=== PATIENT | male | born 1960 | race Caucasian/White ===

== ENCOUNTER 2023-06-17 23:12 | Inpatient (IN) | payer OTHER, SELFPAY ==
[2023-06-17 18:49] VITALS: BP 146/105; BMI 27.7
[2023-06-17 19:10] LABS: % Basophils 0.4 % (0-2); % Eosinophils 2.1 % (0-6); % Immature Granulocytes 0.3 % (0-0.5); % Lymphocytes 15.5 % (20.5-51.1); % Neutrophils 75.7 % (42.2-75.2); Absolute Eosinophils 0.2 10^3/uL (0-0.7); Absolute Lymphocytes 1.2 10^3/uL (1.2-3.4); Absolute Monocytes 0.5 10^3/uL (0.1-0.6); Absolute Neutrophils 5.7 10^3/uL (1.4-6.5); Hematocrit 47.1 % (39.0-52.0); Hemoglobin 16.3 g/dL (13.0-18.0); Mean Corp Hgb Conc. 34.6 g/dL (33.0-37.0); Mean Corpuscular Hgb 32.1 pg (27.0-31.0); Mean Corpuscular Volume 92.9 fL (80.0-94.0); Mean Platelet Volume 10.7 fL (7.4-10.4); Nucleated Red Blood Cells % 0 % (-); Platelet Count 191 10^3/uL (130-400); Red Blood Cell Count 5.07 10^6/uL (4.70-6.10); White Blood Cell Count 7.5 10^3/uL (4.8-10.8)
[2023-06-17 19:20] LABS: Urine Albumin 1+ (Neg - Trace); Urine Bilirubin 2+ (Negative); Urine Character Clear (Clear); Urine Color Yellow; Urine Glucose Negative (Negative); Urine Ketone 1+ (Negative); Urine Leukocyte Trace (Negative); Urine Nitrite Positive (Negative); Urine Occult Blood 2+ (Negative); Urine Specific Gravity 1.025 (<1.030); Urine Urobilinogen 3+ (Neg - 1+)
[2023-06-17 19:25] LABS: Albumin 4.1 g/dl (3.5-5.0); Alkaline Phosphatase 272 U/L (38-126); Blood Urea Nitrogen 19 mg/dl (9-20); Calcium 9.6 mg/dl (8.4-10.2); Carbon Dioxide 27 mmol/L (22-30); Chloride 108 mmol/L (98-107); Estimated Creatinine Clearance 83 ml/min; Glucose 107 mg/dl (70-99); Potassium 4.2 mmol/L (3.5-5.1); Sodium 137 mmol/L (135-145); Total Protein 6.9 g/dl (6.3-8.2); eGFR > 60.00
[2023-06-17 19:28] LABS: Urine White Cell 0-2 /HPF (0-5)
[2023-06-17 20:01] LABS: ALT (SGPT) 1621 U/L (0-50); AST (SGOT) 1134 U/L (17-59); Lipase > 4000 U/L (23-300)
--- NOTE | 2023-06-17 20:07 | ED.GENMED ---
History of Present Illness
General
Chief Complaint: Abdominal Pain
Source: patient and spouse
Exam Limitations: none
Time Seen by Provider: 06/17/23 19:47
Nursing documentation reviewed up to this point in time: agreed with
Travel History
Have you had any contact with someone who has COVID-19?: No
Do you have any symptoms of coronavirus? Fever > 100 degrees, chills, cough, shortness of breath, sore throat, loss of taste or smell, muscle aches, or headache?: No
History of Present Illness
History of Present Illness:
63-year-old male presents to the ER for evaluation of abdominal pain. He tells me he has had intermittent pain since yesterday he started this in the morning it went away but came back sharp last night. He points to his mid abdominal region as the
site of pain. Denies any associated vomiting but felt nauseous once or twice with the. No constipation or diarrhea he did move his bowels today. He denies any fever or chills. He is a social drinker.
Denies any recent fever chills illness. He had a normal colonoscopy previously
Past History
Past History
ED Past Medical History: Other (Kidney stones)
ED Past Surgical History: Orthopedic, Tonsilectomy and Urological
Social History
Tobacco: Non-smoker
Personal:
Living: with family
Review of Systems
Review of Systems
Allergies reviewed?: Yes
All Other Systems: ROS reviewed and negative except as documented in HPI and ROS
Constitutional: Reports no symptoms; Denies fever, fatigue or chills
EENT: Reports no symptoms
Respiratory: Reports no symptoms
Cardiac: Reports no symptoms
ABD/GI: Reports no symptoms
: Reports no symptoms
Musculoskeletal: Reports no symptoms
Skin: Reports no symptoms
Neurological: Reports no symptoms
Hematologic/Lymphatic: Reports no symptoms
Psychiatric: Reports no symptoms
Phy Exam
General Physical Exam
General Presentation: no apparent distress
General age: appears stated age
General Skin: warm and dry
General Mental: alert
General Hydration: appears well hydrated
Gastrointestinal Exam
Gastrointestinal Exam: non tender and soft
Neurological Exam
Neurological Exam: alert and oriented x3
Musculoskeletal Exam
Musculoskeletal Exam: full ROM
Skin Exam
Skin Exam: normal color and warm/dry
Psychiatric Exam
Psychiatric Exam: normal mood/affect
Course
Orders/Labs/Results
Orders:
Orders
06/17/23 19:01
Complete Blood Count/With Diff Urgent
Comprehensive Metabolic Panel Urgent
Lipase Urgent
Urinalysis Reflex To Culture Urgent
Date Specimen was Collected: 06/17/23
Time Specimen was Collected: 18:53
Urine Microscopic Reflex Cult Urgent
Urine Culture Urgent
DEBRA Source: U
Specimen Description:
Date Specimen was Collected: 06/17/23
Time Specimen was Collected: 18:53
06/17/23 20:10
US Abdomen Complete/Upper Urgent
Comment:
Reason For Exam: generalized abd pain elevated lfts and lipase
06/17/23 22:06
Morphine Sulfate 4 mg IV NOW STA
Abnormal Lab Results
06/17/23
19:01
MCH 32.1 H pg
(27.0-31.0)
MPV 10.7 H fL
(7.4-10.4)
Neutrophils % 75.7 H %
(42.2-75.2)
Lymphocytes % 15.5 L %
(20.5-51.1)
Chloride 108 H mmol/L
(98-107)
Glucose 107 H mg/dl
(70-99)
Total Bilirubin 3.0 H mg/dl
(0.2-1.3)
AST 1134 H* U/L
(17-59)
ALT 1621 H* U/L
(0-50)
Alkaline Phosphatase 272 H U/L
(38-126)
Lipase > 4000 H* U/L
(23-300)
Urine Ketones 1+ A
(Negative)
Ur Occult Blood Reflex 2+ A
(Negative)
Urine Nitrite (Reflex) Positive A
(Negative)
Urine Bilirubin 2+ A
(Negative)
Urine Urobilinogen 3+ A
(Neg - 1+)
Leukocyte Esterase Rfl Trace A
(Negative)
Urine RBC 3-6 A /HPF
(0-2)
Urine Albumin (Reflex) 1+ A
(Neg - Trace)
06/17/23 19:01
06/17/23 19:01
Vital Signs
Initial and Last Documented VS:
Initial Vital Signs
Temp Pulse Resp BP Pulse Ox
98.6 F 78 16 146/105 98
06/17/23 18:49 06/17/23 18:49 06/17/23 18:49 06/17/23 18:49 06/17/23 18:49
Last Documented Vital Signs
Temp Pulse Resp BP Pulse Ox
98.6 F 78 16 144/95 98
06/17/23 18:49 06/17/23 18:49 06/17/23 18:49 06/17/23 21:00 06/17/23 21:50
Remelt Furnace Expediter consulted with Physician
Remelt Furnace Expediter consulted with physician?: Yes
Name of Physician Consulted: Wilson
MDM/Problems Addressed
Differential Diagnosis Includes:
Not limited to reflux, biliary colic, less likely pancreatitis, diverticulitis
MDM/Problems Addressed:
Patient is a 63-year-old male presents to the ER for evaluation abdominal pain that has been intermittent but getting worse since last night. Patient is not necessarily tender on exam complain of pain. Patient was found to have elevated liver
function test including elevated bilirubin 3.0, elevated AST at 1134 elevated ALT at 1621 alk phos of 272 and an elevated lipase greater than 4000.
Patient denies any fever chills.
Ultrasound does show multiple stones in the gallbladder with gallbladder wall thickening no findings to suggest biliary tract dilatation pancreas is obscured unable to evaluate for pancreatitis however with lipase being elevated as discussed with
physician likely gallstone pancreatitis. Normal white count nontoxic afebrile. Will give fluids pain medication and admit
*Critical Care Note
Total Time (30-74mins, 75-104mins- exclusive of procedures): Not Applicable
ED Attending Note
-
Portions of this chart may have been created with voice recognition software.� Occasional wrong word or��sound alike� substitutions may have occurred due to the inherent limitations of voice recognition software.
Discharge Plan
Departure
Patient Disposition: Admit
Date of Disposition: 06/17/23
Time of Disposition: 22:22
Admit to: Med/Surg
Presentation/result/management discussed w/ accepting MD/DO: Hospitalist
Patient with high blood pressure during this ER visit?: Yes
Condition: Fair
Covid-19: Not Applicable
Discharge Problem:
Abdominal pain, Elevated liver enzymes
Prescriptions:
No Action
allopurinol 300 MG tablet
300 mg PO DAILY
Magnesium
1 dose PO DAILY
Red Yeast Rice
1 dose PO DAILY
oxycodone-acetaminophen 5 MG/325 MG tablet
1 tab PO Q6HPRN PRN (Reason: pain) Qty: 10 0RF
Referrals:
Isauro Mkcenna MD [Family Provider] -
Interventions
Interventions:
*Risk Screen - Suicide Last Done: 06/17/23 18:49
*Neglect/Abuse Screening Last Done: 06/17/23 18:49
ED- Fall Risk Assessment Last Done: 06/17/23 18:49
LQ-Aibckc-Cxfibwdbdc Assessment Last Done: 06/17/23 20:20
Discharge Date and Time
Print Language: AMHARIC
[2023-06-17 20:17] VITALS: BP 142/86
[2023-06-17 21:00] VITALS: BP 144/95
[2023-06-17 22:00] VITALS: BP 147/94
[2023-06-17] MEDS: MORPHINE SULFATE 4 MG IV (22:11)
[2023-06-17] MEDS: NSS 1000 IV (22:22)
[2023-06-17 23:00] VITALS: BP 164/126
--- NOTE | 2023-06-17 23:17 | HPS.HSE ---
Family Physician
-
Family Physician: Isauro Mckenna
Chief Complaint
-
Abd Pain
History of Present Illness
Patient is a 63y M with PMH significant for gout and kidney stones who presents to ED complaining of abdominal pain. Patient notes that he developed abdominal pain yesterday while driving. This resolved after a period of time - though it
briefly returned after he drank some coffee. He had dinner last PM and felt well when he went to bed. He woke in the middle of the night with abdominal discomfort - but went back to sleep. When he woke this AM, the pain was present and it has
persisted throughout the day. Pain increases at times, 'in waves'. he had a single bout of nausea with no emesis. Normal BM this morning. No fevers / chills.
Patient describes a similar episode about 2 weeks ago that seemed to improve with Advil.
Today he took Tylenol, Advil, TUMS, etc without improvement in his symptoms.
Patient notes in retrospect that he has frequently felt 'lousy' after eating - probably for the past several months. He has not had any pain per se, but has felt bloated and mildly nauseated.
Medical History
Past Medical History
Past Medical History: Reports Other
Additional Past Medical History:
Gout
Nephrolithiasis
Past Surgical History: Reports Other
Additional Past Surgical History:
T&A
Right Knee Arthroscopy
ESWL
Ureteroscopy / Stent
Social History
Tobacco: Non-smoker
Alcohol: Occasional
Drug: None
Personal:
Living: With Family
Family History
Family History: Other (Father: CAD Mother: Parkinson's, A-Fib)
Allergies / Home Medications
Allergies reflects when Allergies were last updated in [facility].
Home Medications with original date entered in [facility]
Allergy/Medication List:
Allergies
Allergy/AdvReac Type Severity Reaction Status Date / Time
NKA - No Known Allergies Allergy Unknown Uncoded 06/17/23 18:52
Home Medications
allopurinol 300 mg tablet 300 mg PO DAILY 06/25/19
Review of Systems
-
History Source: Patient
A 12 point ROS was completed and negative except as noted: Yes
Constitutional: Denies Fever or Chills
Respiratory: Denies Cough or Trouble Breathing
Cardiac: Denies Chest Pain or Palpitations
Abdomen/GI: Reports Abdominal Pain and Nausea; Denies Vomiting, Diarrhea or Constipated
: Denies Dysuria, Frequency or Flank Pain
Neurological: Denies Dizzy or Headache
Psych: Denies Depression or Anxiety
Physical Exam
Vital Signs
Vital Signs
Temp Pulse Resp BP Pulse Ox
98.6 F 79 17 147/94 97
06/17/23 18:49 06/17/23 22:30 06/17/23 22:30 06/17/23 22:00 06/17/23 22:30
Physical Exam
General: Other (63y M in no acute distress.)
HEENT: Moist mucous membranes and PERRLA
Respiratory: Clear; No Wheezes, Rales or Rhonchi
Cardiac: S1/S2 and Regular Rhythm; No Murmur
GI: Soft, Non Distended, Normal Bowel Sounds and Other (Mild tenderness R abdomen. No rebound / guarding.)
Musculoskeletal: No Clubbing, No Cyanosis and No Edema
Neuro: AO x 3
Laboratory Results
-
06/17/23 19:01
06/17/23 19:01
Laboratory Results
Total Bilirubin 3.0 mg/dl (0.2-1.3) H 06/17/23 19:01
AST 1134 U/L (17-59) H* 06/17/23 19:01
ALT 1621 U/L (0-50) H* 06/17/23 19:01
Alkaline Phosphatase 272 U/L (38-126) H 06/17/23 19:01
Lipase > 4000 U/L (23-300) H* 06/17/23 19:01
Impression/Plan
-
A/P: Patient is a 63y M with PMH significant for gout and kidney stones who presents to ED complaining of abdominal pain.
Cholelithiasis
+/- Choledocholithiasis
+/- Cholecystitis
- Admit for further evaluation and treatment.
- IV abx with Zosyn for now.
- Supportive care with IVFs, pain control, antiemetics, etc.
- GI and Surgery consulted for further evaluation.
- MRI / MRCP in the AM for further evaluation.
- +/- ERCP depending on findings.
- Patient would likely benefit from cholecystectomy at some point.
- Follow for any new / worsening symptoms.
- Follow for improvement in LFTs.
History of Gout
- Stable. No recent symptoms.
- Continue allopurinol.
DVT Prophylaxis: Lovenox
Code Status: Full
--- NOTE | 2023-06-18 00:14 | PTCARENOTE ---
Pt received from ED to 434-1. Pt oriented to room and call eddy.
[2023-06-18 00:17] VITALS: BMI 27.8
[2023-06-18 00:18] VITALS: BP 152/88
[2023-06-18] MEDS: NSS 1000 IV ×2 (00:25→08:06)
[2023-06-18] MEDS: ZOSYN 50 IV ×4 (01:05→20:21)
[2023-06-18 06:14] LABS: Hematocrit 41.6 % (39.0-52.0); Hemoglobin 14.3 g/dL (13.0-18.0); Mean Corp Hgb Conc. 34.4 g/dL (33.0-37.0); Mean Corpuscular Hgb 31.8 pg (27.0-31.0); Mean Corpuscular Volume 92.4 fL (80.0-94.0); Mean Platelet Volume 11.3 fL (7.4-10.4); Platelet Count 171 10^3/uL (130-400); Red Cell Dist. Width 12.9 % (11.5-14.5); White Blood Cell Count 6.7 10^3/uL (4.8-10.8)
[2023-06-18 06:20] LABS: AST (SGOT) 568 U/L (17-59); Albumin 3.3 g/dl (3.5-5.0); Alkaline Phosphatase 251 U/L (38-126); Blood Urea Nitrogen 16 mg/dl (9-20); Calcium 8.4 mg/dl (8.4-10.2); Carbon Dioxide 23 mmol/L (22-30); Chloride 109 mmol/L (98-107); Direct Bilirubin 0.4 mg/dl (0.0-0.4); Estimated Creatinine Clearance 107 ml/min; Glucose 94 mg/dl (70-99); Potassium 3.9 mmol/L (3.5-5.1); Sodium 136 mmol/L (135-145); Total Bilirubin 1.5 mg/dl (0.2-1.3); Total Protein 5.9 g/dl (6.3-8.2); eGFR > 60.00
[2023-06-18 06:29] LABS: ALT (SGPT) 965 U/L (0-50)
[2023-06-18 07:01] VITALS: BP 138/82
[2023-06-18 07:07] LABS: Hepatitis C Antibody Negative (Negative)
[2023-06-18] MEDS: NSS (PRESERVATIVE FREE) 10 ML IV (08:04)
[2023-06-18] MEDS: PROTONIX IV 40 MG IV (08:04)
[2023-06-18] MEDS: ZYLOPRIM 300 MG PO (08:05)
--- NOTE | 2023-06-18 08:14 | CON.GI ---
Consultation
-
Date/Time Consultation Requested: 06/18/2023, 00:15
Date/Time Consultation Performed: 06/18/2023, 4pm
Requesting Provider: Dr. Foreman
Performing Provider: Dr. Braun
Reason for Consultation: possible choledocho; elevated bili
Medical History
Chief Complaint / HPI
Chief Complaint: abd pain
History of Present Illness:
63-year-old male presenting with upper abdominal pain. Patient had abdominal pain 2 weeks ago and then had recurrent on Monday night much more severe. Pain is epigastric. Had a [employer] pounder for lunch and then chicken farm for dinner and woke up
that night with pain. Had some mild nausea. No fevers or chills.
Labs significant for total bilirubin 3 repeat 1.5 with direct of 0.4, AST initially 1134 down to 568, ALT 1621, repeat 965, alk phos initially 272, down to 251, lipase more than 4000. WBC 6.7. No fevers.
Abdominal ultrasound with cholelithiasis with borderline gallbladder wall thickening, pancreas obscured cannot evaluate for pancreatitis.
Records show colonoscopy was done [address] Best with 3 mm rectal polyp, stool in the ascending colon but prep was adequate, hemorrhoids, pathology with lymphoid aggregate recommend repeat 5 years.
Past Medical History
Past Medical History: Other (gout, nephrolithiasis)
Past Surgical History: Orthopedic and Other (T+A)
Social History
Tobacco: Non-Smoker
Alcohol: Occasional
Drug: None
Family History
Family History: Other (grandma with [facility] provide)
Allergies / Home Medications
Allergy/AdvReac Type Severity Reaction Status Date / Time
NKA - No Known Allergies Allergy Unknown Uncoded 06/17/23 18:52
�Medication �Instructions �Recorded
allopurinol 300 mg tablet 300 mg PO DAILY 06/25/19
Review of Systems
Vital Signs
Temp Pulse Resp BP Pulse Ox
98.8 F 77 16 138/82 97
06/18/23 07:01 06/18/23 07:01 06/18/23 07:01 06/18/23 07:01 06/18/23 07:01
Physical Exam
Exam
General: Well Developed
HEENT: Anicteric
Respiratory: Clear
GI: Non Tender and Non Distended
Musculoskeletal: No Clubbing
Skin: Warm
Neuro: AO x 3
Hematologic/Lymphatic: No Lymphadenopathy
Psych: Calm
Results
WBC 6.7 10^3/uL (4.8-10.8) 06/18/23 05:47
Hgb 14.3 g/dL (13.0-18.0) 06/18/23 05:47
Hct 41.6 % (39.0-52.0) 06/18/23 05:47
MCV 92.4 fL (80.0-94.0) 06/18/23 05:47
Plt Count 171 10^3/uL (130-400) 06/18/23 05:47
Absolute Neuts (auto) 5.7 10^3/uL (1.4-6.5) 06/17/23 19:01
Sodium 136 mmol/L (135-145) 06/18/23 05:47
Potassium 3.9 mmol/L (3.5-5.1) 06/18/23 05:47
Chloride 109 mmol/L (98-107) H 06/18/23 05:47
Carbon Dioxide 23 mmol/L (22-30) 06/18/23 05:47
BUN 16 mg/dl (9-20) 06/18/23 05:47
Creatinine 0.7 mg/dL (0.7-1.3) 06/18/23 05:47
Calcium 8.4 mg/dl (8.4-10.2) 06/18/23 05:47
Total Bilirubin 1.5 mg/dl (0.2-1.3) H D 06/18/23 05:47
AST 568 U/L (17-59) H* 06/18/23 05:47
ALT 965 U/L (0-50) H* 06/18/23 05:47
Alkaline Phosphatase 251 U/L (38-126) H 06/18/23 05:47
Lipase > 4000 U/L (23-300) H* 06/17/23 19:01
Hepatitis C Antibody Negative (Negative) 06/18/23 05:47
Diagnostic Image Results:
Prior GI Procedures:
EGD:
Colonoscopy:
Assessment / Plan
-
63-year-old male presenting with upper abdominal pain found to have lipase more than 4000, stones on ultrasound, elevated LFTs. Most likely I suspect this is gallstone pancreatitis. Of note, AST and ALT are out of portion to what would expected
for gallstone pancreatitis. Bilirubin is elevated but decreased on repeat and direct bilirubin is currently normal. Lower suspicion for choledocholithiasis.
At this time, MRI with MRCP has been ordered and we will follow this up. Recommend n.p.o., IV fluids, monitor I+O with pancreatitis. Surgery has also been consulted and I d/w surgery, plan for interval CCY pending MRI and improvement of
pancreatitis.
Discussed possible need for ERCP r/a/b reviewed with pt inc but not limited to bleeding, infection, perforation, pancreatitis.
-
-
Thank you for consultation and allowing me to participate in the patient's care. Please call the semiconductor wafers etch operator GI physician during the after hours with any questions or concerns.
[2023-06-18 08:29] LABS: Lipase > 4000 U/L (23-300)
--- NOTE | 2023-06-18 10:16 | W.PN.HOSP.TC ---
Today's Communication/Plan
-
MRCP
Change to lactated Ringer's IV
Toradol IV
GI consult
General surgery consult
Assessment / Plan
Assessment / Plan
Gen-AAOx3, NAD
HEENT-NC, AT, anicteric, clear oral mm
Neck-supple
CV-reg, no M, +S1/S2
Lungs-clear B/L
Abd-soft, mild epigastric tenderness, no rebound or guarding, not distended
Ext-no edema
Musculoskeletal-no cyanosis, clubbing
Skin-warm and dry
Neuro-grossly non-focal
Psych-calm, cooperative
Acute gallstone pancreatitis -currently NPO. Change IV fluids to lactated Ringer's. Continue analgesics. Await MRCP. GI consulted.
LFTs slowly improving.
Cholelithiasis -General surgery consulted. Eventual cholecystectomy. No biliary ductal dilation noted on ultrasound.
Headache -suspect tension headache. Toradol IV as needed.
Gout -quiescent. Last attack was 2 years ago. Informed patient to limit alcohol intake.
Full code
Anticipated Discharge: > 48 hours
Subjective/Interval History
-
Date of Service: June 18, 2023
Patient seen and examined. Mild abdominal discomfort. Complaining of headache.
Objective Data
-
Labs:
Laboratory Results
06/18/23
05:47
WBC 6.7
Hgb 14.3
Hct 41.6
Plt Count 171
Sodium 136
Potassium 3.9
Chloride 109 H
Carbon Dioxide 23
BUN 16
Creatinine 0.7
Glucose 94
Calcium 8.4
Total Bilirubin 1.5 H D
AST 568 H*
ALT 965 H*
Alkaline Phosphatase 251 H
Vital Signs:
Vital Signs
Temp Pulse Resp BP Pulse Ox
98.8 F 77 16 138/82 97
06/18/23 07:01 06/18/23 07:01 06/18/23 07:01 06/18/23 07:01 06/18/23 08:35
I&O
06/17/23 06/18/23 06/19/23
06:59 06:59 06:59
Intake Total 800 / 800
Balance 800 / 800
Review of Systems
-
History Source: Patient
All other systems: Reviewed and negative
[2023-06-18] MEDS: LR 1000 IV ×2 (10:30→20:21)
--- NOTE | 2023-06-18 10:30 | CM ---
CM reviewed chart, general surgery and GI consulted. Patient seen with , initial assessment completed. Patient resides with in a multiple story home, two steps to enter. Patient is independent with ADLs/IADLs, denies DME, VN, or SNF.
Patient confirms PCP Dr. Mckenna, pharmacy [facility], confirms prescription coverage. CM will continue to follow for discharge planning needs.
Plan; home no needs anticipated.
[2023-06-18] MEDS: TORADOL 15 MG IV (10:33)
--- NOTE | 2023-06-18 12:41 | CON.GS ---
Consultation
-
Date/Time Consultation Requested: 06/18/23 0015
Requesting Provider: Ahsan
Reason for Consultation: Cholelithiasis +/- Cholecystitis +/- Choledocholithiasis
Medical History
-
Chief Complaint: Abdominal pain
History of Present Illness:
This is a 63 yo male with a history of gout and kidney stones who present through the ED with complaints of RUQ/epigastric pain. He had a bout of pain about 2 weeks ago which was similar but self limiting. On Monday, pain returned after he ate a
quarter pounder with cheese on his way to [place] but later resolved. Later that night, after eating chicken parm and drinking a few beers the pain returned in the middle of the night and was persistent causing him to present for evaluation
yesterday evening. He is tender across his upper abdomen into the RUQ. He denies vomiting but has had some nausea.
Past Medical History
Past Medical History: Other (gout, nephrolithiasis)
Past Surgical History: Orthopedic (right TKA), Tonsilectomy and Urological (ESWL, ureteroscopy with stent)
Social History
Tobacco: Non-Smoker
Alcohol: Occasional
Personal:
Living: With Family
Family History
Family History: CAD and Other (parkinson's, afib)
Allergies / Home Medications
Allergy/AdvReac Type Severity Reaction Status Date / Time
NKA - No Known Allergies Allergy Unknown Uncoded 06/17/23 18:52
�Medication �Instructions �Recorded �Confirmed �Type
allopurinol 300 mg tablet 300 mg PO DAILY 06/25/19 06/18/23 History
Review of Systems
-
History Source: Patient and Family
All other systems: Negative unless noted
A 10 point review of systems was completed, and was negative except as per HPI.
Physical Exam
Vital Signs
Temp Pulse Resp BP Pulse Ox
98.8 F 77 16 138/82 97
06/18/23 07:01 06/18/23 07:01 06/18/23 07:01 06/18/23 07:01 06/18/23 08:35
06/17/23 06/18/23 06/19/23
06:59 06:59 06:59
Actual Weight 82.781 kg
Body Mass Index (BMI) 27.8
Lab Results
06/18/23 05:47
06/18/23 05:47
WBC 6.7 10^3/uL (4.8-10.8) 06/18/23 05:47
Hgb 14.3 g/dL (13.0-18.0) 06/18/23 05:47
Hct 41.6 % (39.0-52.0) 06/18/23 05:47
Plt Count 171 10^3/uL (130-400) 06/18/23 05:47
Abs Immat Gran (auto) 0.0 10^3/uL (0-0.05) 06/17/23 19:01
Neutrophils % 75.7 % (42.2-75.2) H 06/17/23 19:01
Physical Exam
General: Well Developed, Well Nourished and Comfortable
HEENT: Normocephalic
Respiratory: Non Labored Respirations
GI: Soft, Non Distended and Tender (RUQ/epigastric area)
Skin: Warm and Dry
Neuro: Awake, Alert and AO x 3
Psych: Calm
Data Reviewed
-
Ultrasound: Image Personally Visualized and interpreted, Report Reviewed by me, Discussed with Physician, Discussed with Patient and Discussed with Family
Labs: Labs Reviewed by me, Discussed with Physician and Discussed with Patient
Old Records: Reviewed
Assessment / Plan
-
63 yo male with h/o gout, nephrolithiasis presenting recurrent abdominal pain after fatty meals, now with persistent pain. US with cholelithiasis, ?wall thickening. Negative pierce's. Labs with elevated lipase and LFT's consistent with pancreatitis
picture. Bilirubin trended down today. Likely gallstone mediated pancreatitis with passage of stone although etoh may be contributing. Incidentally UA is positive as well with cx pending. AFVSS.
--GI following with us, discussed with Dr. Braun
--MRCP is pending, ?choledocholithiasis
--Follow labs/imaging/serial exams
--Recommend lap cholecystectomy this admission, timing TBD pending resolution of acute pancreatitis and MRCP findings
--Continue ABX
[2023-06-18 15:08] VITALS: BP 131/81
[2023-06-18] MEDS: LOVENOX 40 MG SC (16:59)
[2023-06-18] MEDS: TYLENOL 650 MG PO (17:04)
[2023-06-18 23:57] VITALS: BP 141/79
[2023-06-19] MEDS: ZOSYN 50 IV ×4 (01:07→21:49)
[2023-06-19 06:21] LABS: Hematocrit 41.2 % (39.0-52.0); Hemoglobin 14.1 g/dL (13.0-18.0); Mean Corp Hgb Conc. 34.2 g/dL (33.0-37.0); Mean Corpuscular Hgb 32.5 pg (27.0-31.0); Mean Corpuscular Volume 94.9 fL (80.0-94.0); Mean Platelet Volume 11.9 fL (7.4-10.4); Platelet Count 174 10^3/uL (130-400); Red Blood Cell Count 4.34 10^6/uL (4.70-6.10); Red Cell Dist. Width 12.4 % (11.5-14.5); White Blood Cell Count 8.5 10^3/uL (4.8-10.8)
[2023-06-19 06:44] LABS: ALT (SGPT) 695 U/L (0-50); AST (SGOT) 228 U/L (17-59); Albumin 3.2 g/dl (3.5-5.0); Alkaline Phosphatase 322 U/L (38-126); Blood Urea Nitrogen 15 mg/dl (9-20); Calcium 8.7 mg/dl (8.4-10.2); Carbon Dioxide 25 mmol/L (22-30); Chloride 104 mmol/L (98-107); Estimated Creatinine Clearance 94 ml/min; Glucose 74 mg/dl (70-99); Lipase 309 U/L (23-300); Potassium 4.2 mmol/L (3.5-5.1); Sodium 134 mmol/L (135-145); Total Bilirubin 1.7 mg/dl (0.2-1.3); Total Protein 5.7 g/dl (6.3-8.2); eGFR > 60.00
[2023-06-19 07:29] VITALS: BP 134/78
[2023-06-19] MEDS: NSS (PRESERVATIVE FREE) 10 ML IV (08:34)
[2023-06-19] MEDS: ZYLOPRIM 300 MG PO (08:35)
[2023-06-19] MEDS: PROTONIX IV 40 MG IV (08:35)
--- NOTE | 2023-06-19 09:08 | W.PN.GI.CBS2 ---
Today's Communication / Plan
-
mri further recs pending
Assessment / Plan
-
63-year-old male presenting with upper abdominal pain found to have lipase more than 4000, stones on ultrasound, elevated LFTs c/w gallstone pancreatitis. Of note, AST and ALT are out of portion to what would expected for gallstone pancreatitis.
Bilirubin is elevated but decreased on repeat and direct bilirubin is currently normal. Lower suspicion for choledocholithiasis.
At this time, MRI with MRCP has been ordered and we will follow this up. Recommend n.p.o., IV fluids, monitor I+O with pancreatitis. Surgery has also been consulted and I d/w surgery today, plan for interval CCY pending MRI.
Discussed possible need for ERCP r/a/b reviewed with pt inc but not limited to bleeding, infection, perforation, pancreatitis.
We called MRI should be done mid-morning.
Patient is improved and diet could be advanced with pancreatitis but due to testing/procedures will keep NPO.
Subjective
Subjective
Date of Service: June 19, 2023
feels good pain much improved
Objective
Data Reviewed
Laboratory Data:
Laboratory Results
06/19/23 04:41
06/19/23 04:41
Laboratory Results
Total Bilirubin 1.7 mg/dl (0.2-1.3) H 06/19/23 04:41
AST 228 U/L (17-59) H 06/19/23 04:41
ALT 695 U/L (0-50) H* 06/19/23 04:41
Alkaline Phosphatase 322 U/L (38-126) H 06/19/23 04:41
Lipase 309 U/L (23-300) H 06/19/23 04:41
Vital Signs and I&O:
Vital Signs
Temp Pulse Resp BP Pulse Ox
98.1 F 89 18 134/78 96
06/19/23 07:29 06/19/23 07:29 06/19/23 07:29 06/19/23 07:29 06/19/23 07:29
I&O
06/18/23 06/19/23 06/20/23
06:59 06:59 06:59
Intake Total 800 / 800 3920 / 3920
Balance 800 / 800 3920 / 3920
Physical Exam
Physical Exam
HEENT: Anicteric
Cardiology: Normal Sinus Rhythm
Pulmonary: Clear
GI: Non Distended and Non Tender
--- NOTE | 2023-06-19 09:46 | W.PN.GS2 ---
Today's Communication / Plan
-
MRCP. Possible OR today versus tomorrow pending findings.
Assessment / Plan
-
This is a 63-year-old male with a history of gout, nephrolithiasis who presents with recurrent postprandial abdominal pain after fatty meals. Ultrasound with cholelithiasis and some wall thickening but negative Boateng's. Elevated lipase concerning
for pancreatitis now resolving. Bilirubin overall trending down but still elevated. Exam with only mild tenderness today. His picture is most consistent with biliary pancreatitis with possible superimposed biliary colic.
I think reasonable to obtain an MRCP today to rule out choledocholithiasis given persistent T. bili.
Appreciate GI following along with us.
Continue antibiotics, n.p.o., IV fluids. If unable to get to the OR today okay to trial clears, n.p.o. at midnight for possible OR/laparoscopic cholecystectomy with cholangiogram tomorrow.
General surgery will continue to follow.
Time Spent
Total Time Spent with Patient (in minutes): 25
Subjective Data
-
Date of Service: June 19, 2023
Interval Events:
No acute events overnight. Slept well. Pain Controlled. Denies Nausea/Vomiting.
Objective Data
-
Intake and Output
06/18/23 06/19/23 06/20/23
06:59 06:59 06:59
Intake Total 800 / 800 3920 / 3920
Balance 800 / 800 3920 / 3920
Intake:
Oral fluids 1200 / 1200
IV fluids (Total) 750 / 750 2520 / 2520
IV piggybacks 50 / 50 200 / 200
Other:
Number of approximated MODERATE 1
amounts of urine
Vital Signs
Temp Pulse Resp BP Pulse Ox
98.1 F 89 18 134/78 96
06/19/23 07:29 06/19/23 07:29 06/19/23 07:29 06/19/23 07:29 06/19/23 07:29
Lab Results
06/19/23 04:41
06/19/23 04:41
Calcium 8.7 mg/dl (8.4-10.2) 06/19/23 04:41
Total Bilirubin 1.7 mg/dl (0.2-1.3) H 06/19/23 04:41
Direct Bilirubin 0.4 mg/dl (0.0-0.4) 06/18/23 05:47
AST 228 U/L (17-59) H 06/19/23 04:41
ALT 695 U/L (0-50) H* 06/19/23 04:41
Alkaline Phosphatase 322 U/L (38-126) H 06/19/23 04:41
Total Protein 5.7 g/dl (6.3-8.2) L 06/19/23 04:41
Albumin 3.2 g/dl (3.5-5.0) L 06/19/23 04:41
Physical Exam
-
GENERAL/NEURO: Awake, Alert, no distress
CHEST: Unlabored breathing on RA
ABDOMEN: Soft, mildly tender to palpation in the epigastrium, Non-Distended
--- NOTE | 2023-06-19 11:23 | W.PN.HOSP.TC ---
Today's Communication/Plan
-
await MRI result for next step, possible OR later/tomorrow pending MRI results and surgical planning
Assessment / Plan
Assessment / Plan
Assessment:
Acute gallstone pancreatitis
Elevated LFTs and lipase, bilirubin
Cholelithiasis
- improving with IVF and analgesia; remains NPO for now
- awaiting MRI/MRCP
- GI following for possible ERCP need
- Surgery following; for lap julio this admit with possible IOC
Headache -suspect tension headache. Toradol IV as needed.
Gout -quiescent. Last attack was 2 years ago. Informed patient to limit alcohol intake.
DVT ppx: Lovenox
Code: Full
Anticipated Discharge: > 48 hours
Subjective/Interval History
-
Date of Service: June 19, 2023
pain has mostly improved/resolved
awaiting MRI
Objective Data
-
Labs:
Laboratory Results
06/19/23
04:41
WBC 8.5
Hgb 14.1
Hct 41.2
Plt Count 174
Sodium 134 L
Potassium 4.2
Chloride 104
Carbon Dioxide 25
BUN 15
Creatinine 0.8
Glucose 74
Calcium 8.7
Total Bilirubin 1.7 H
AST 228 H
ALT 695 H*
Alkaline Phosphatase 322 H
Vital Signs:
Vital Signs
Temp Pulse Resp BP Pulse Ox
98.1 F 89 18 134/78 96
06/19/23 07:29 06/19/23 07:29 06/19/23 07:29 06/19/23 07:29 06/19/23 07:29
I&O
06/18/23 06/19/23 06/20/23
06:59 06:59 06:59
Intake Total 800 / 800 3920 / 392
Balance 800 / 3919 / 392
Physical Exam
-
General: No Apparent Distress
HEENT: Normocephalic and Atraumatic
Respiratory: Negative Wheezes or Rales
Cardiac: Regular Rhythm and S1/S2
GI: Soft and Nontender
Genito-urinary: No Costovertebral Tender
Neuro: AO x 3
Hematologic / Lymphatic: No Lymphadenopathy
Psych: Calm
Data Reviewed
-
Total Time Spent with Patient (in minutes): 42
Labs: Labs Reviewed by me
[2023-06-19] MEDS: TYLENOL 650 MG PO ×2 (13:30→17:52)
--- NOTE | 2023-06-19 13:52 | W.PN.UPDATE ---
Update Note
Progress Note Update
MRCP NO cbd stone
d/w pt, surgery, hospitalist
clears today, npo after midnight
ccy tmwr
gi will sign off pls call with ?s
--- NOTE | 2023-06-19 14:56 | CM ---
Chart reviewed and case filler met with patient this am and plan is to home no needs when stable.
Plan; Home no needs when stable.
[2023-06-19 15:49] VITALS: BP 111/69
[2023-06-19] MEDS: LOVENOX 40 MG SC (17:44)
[2023-06-19 22:48] VITALS: BP 121/72
[2023-06-20] MEDS: ZOSYN 50 IV ×3 (03:17→13:51)
[2023-06-20 06:14] LABS: ALT (SGPT) 415 U/L (0-50); AST (SGOT) 91 U/L (17-59); Albumin 3.2 g/dl (3.5-5.0); Alkaline Phosphatase 269 U/L (38-126); Blood Urea Nitrogen 15 mg/dl (9-20); Carbon Dioxide 25 mmol/L (22-30); Chloride 105 mmol/L (98-107); Estimated Creatinine Clearance 83 ml/min; Glucose 91 mg/dl (70-99); Potassium 3.6 mmol/L (3.5-5.1); Sodium 136 mmol/L (135-145); Total Bilirubin 1.5 mg/dl (0.2-1.3); Total Protein 5.8 g/dl (6.3-8.2); eGFR > 60.00
[2023-06-20 07:00] VITALS: BP 112/74
[2023-06-20] MEDS: NSS (PRESERVATIVE FREE) 10 ML IV (08:02)
[2023-06-20] MEDS: PROTONIX IV 40 MG IV (08:02)
--- NOTE | 2023-06-20 08:15 | W.PN.HOSP.TC ---
Today's Communication/Plan
-
NPO for lap julio today
Assessment / Plan
Assessment / Plan
Assessment:
Acute gallstone pancreatitis
Elevated LFTs and lipase, bilirubin
Cholelithiasis
- improving with IVF and analgesia; remains NPO for now
- MRI/MRCP: no CBD filling defects
- Surgery following; for lap julio today
- GI signed off
Headache - suspect tension headache. Toradol IV as needed.
Gout - quiescent. Last attack was 2 years ago. Informed patient to limit alcohol intake.
DVT ppx: Lovenox
Code: Full
Anticipated Discharge: 24 - 48 hours
Subjective/Interval History
-
Date of Service: June 20, 2023
no new complaints
for lap julio today
Objective Data
-
Labs:
Laboratory Results
06/20/23
05:26
Sodium 136
Potassium 3.6
Chloride 105
Carbon Dioxide 25
BUN 15
Creatinine 0.9
Glucose 91
Calcium 9.0
Total Bilirubin 1.5 H
AST 91 H
ALT 415 H
Alkaline Phosphatase 269 H
Vital Signs:
Vital Signs
Temp Pulse Resp BP Pulse Ox
98.0 F 64 14 121/72 96
06/19/23 22:48 06/19/23 22:48 06/19/23 22:48 06/19/23 22:48 06/19/23 22:48
I&O
06/19/23 06/20/23 06/21/23
06:59 06:59 06:59
Intake Total 3920 / 3920
Balance 3920 / 3920
Physical Exam
-
General: No Apparent Distress
HEENT: Normocephalic and Atraumatic
Respiratory: Negative Wheezes
Cardiac: Regular Rhythm and S1/S2
GI: Soft and Nontender
Neuro: AO x 3
Hematologic / Lymphatic: No Lymphadenopathy
Psych: Calm
Data Reviewed
-
Total Time Spent with Patient (in minutes): 41
Labs: Labs Reviewed by me
[2023-06-20 12:00] VITALS: BP 110/76
--- NOTE | 2023-06-20 12:01 | W.PN.GS2 ---
Today's Communication / Plan
-
-- Low fat diet
-- DC if pain controlled and tolerating diet
-- Outpatient laparoscopic cholecystectomy with possible IOC
Assessment / Plan
-
This is a 63-year-old male with a history of gout, nephrolithiasis who presents with recurrent postprandial abdominal pain after fatty meals. Ultrasound with cholelithiasis and some wall thickening but negative Boateng's. Elevated lipase concerning
for pancreatitis now resolving. Bilirubin overall trending down but still elevated. Exam with only mild tenderness today. His picture is most consistent with biliary pancreatitis with possible superimposed biliary colic.
The natural history and pathophysiology of biliary and stone disease was discussed. Role of cholecystectomy in preventing future episodes of cholecystitis and gallstone pancreatitis was discussed. Ultimately recommend cholecystectomy, timing TBD.
We discussed that given OR schedule there is a chance his case will be unable to be performed today. Discussed option of discharge on a low-fat diet with outpatient cholecystectomy in the next week. Risks of recurrent cholecystitis or pancreatitis
were discussed. Patient is in agreement and willing to proceed with outpatient management. All questions answered.
We discussed a laparoscopic cholecystectomy with possible cholangiogram. The procedure itself, as well as the risks, benefits, and alternatives was discussed. Specifically, we discussed the risks of bleeding, infection, injury to surrounding
structures (bowel, bile ducts), CBD injury, need for open procedure. All questions answered. Consent signed.
-- Low fat diet
-- DC if pain controlled and tolerating diet
-- Outpatient laparoscopic cholecystectomy with possible IOC
Subjective Data
-
Date of Service: June 20, 2023
Pain resolved. No nausea or emesis. No fevers or chills.
Objective Data
-
Intake and Output
06/19/23 06/20/23 06/21/23
06:59 06:59 06:59
Intake Total 3920 / 3920
Balance 3920 / 3920
Intake:
Oral fluids 1200 / 1200
IV fluids (Total) 2520 / 2520
IV piggybacks 200 / 200
Other:
Number of approximated MODERATE 1 2
amounts of urine
Vital Signs
Temp Pulse Resp BP Pulse Ox
98.1 F 78 18 112/74 98
06/20/23 07:00 06/20/23 07:00 06/20/23 07:00 06/20/23 07:00 06/20/23 07:00
Lab Results
06/19/23 04:41
06/20/23 05:26
Calcium 9.0 mg/dl (8.4-10.2) 06/20/23 05:26
Total Bilirubin 1.5 mg/dl (0.2-1.3) H 06/20/23 05:26
Direct Bilirubin 0.4 mg/dl (0.0-0.4) 06/18/23 05:47
AST 91 U/L (17-59) H 06/20/23 05:26
ALT 415 U/L (0-50) H 06/20/23 05:26
Alkaline Phosphatase 269 U/L (38-126) H 06/20/23 05:26
Total Protein 5.8 g/dl (6.3-8.2) L 06/20/23 05:26
Albumin 3.2 g/dl (3.5-5.0) L 06/20/23 05:26
Physical Exam
-
Gen: NAD
Abd: soft, NT/ND, non-peritoneal, negative Boateng's sign
--- NOTE | 2023-06-20 12:04 | W.DS.TRANS ---
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
-
Discharge Instructions:
Discharge Diagnosis/Procedures gallstone pancreatitis, elevated LFTS,
Cholelithiasis
Diet Low Fat
Activity As tolerated
Instructions:
Stand-Alone Forms:
Changes to Home Medications: No
Discharge Medications:
DC Medications w/original date entered in [facility]
allopurinol 300 mg tablet 300 mg PO DAILY Gout 06/25/19
acetaminophen 325 mg tablet 650 mg (2 x 325 mg) PO Q4HPRN PRN Mild Pain / Temp > 101 #100 tabs 06/20/23
Home Medication Changes
Pending Results: No
Total time spent discharging patient (in min): 42
--- NOTE | 2023-06-20 12:08 | CM ---
Chart reviewed, home no needs today.
Plan; Home no needs.
[2023-06-20] MEDS: ZYLOPRIM 300 MG PO (13:51)
== END 2023-06-20 15:55 | disposition home or self-care (01) | DRG 444 ==
LOC: 4 WEST ACU 23:12
PROVIDERS: Hospitalist; Registered Nurse; ADMITTING PHYSICIAN Hospitalist; ATTENDING PHYSICIAN Internal Medicine; CONSULT PHYSICIAN Internal Medicine Gastroenterology; EMERGENCY PHYSICIAN Emergency Medicine; FAMILY PHYSICIAN Family Medicine; OTHER PHYSICIAN Surgery
DX: K80.19 Calculus of gallbladder with other cholecystitis with obstruction (principal); K85.90 Acute pancreatitis without necrosis or infection, unspecified; G44.209 Tension-type headache, unspecified, not intractable; M1A.9XX0 Chronic gout, unspecified, without tophus (tophi)
CPT/HCPCS: 74183; 76700; 80053; 81003; 81015; 82248; 83690; 85025; 85027; 86803; 87086; 96361; 96374; 99284; A9575

== ENCOUNTER 2023-06-23 06:19 | Day surgery (SDC) | payer OTHER, SELFPAY ==
[2023-06-23] VITALS (9 sets, daily range): BP systolic 122–134; BP diastolic 67–78; BMI 27.3
[2023-06-23] MEDS: TYLENOL 1000 MG PO (10:37)
[2023-06-23] MEDS: NORMOSOL-R 1000 IV (10:38)
[2023-06-23] MEDS: ZOFRAN 4 MG IV (16:35)
[2023-06-23] MEDS: COMPAZINE 5 MG IV (17:12)
== END 2023-06-23 17:40 | disposition home or self-care (01) ==
LOC: SDS 06:19
PROVIDERS: ATTENDING PHYSICIAN Surgery
DX: K80.10 Calculus of gallbladder with chronic cholecystitis without obstruction (principal); K85.10 Biliary acute pancreatitis without necrosis or infection
CPT/HCPCS: 47563; 88304; 74300; 76000; 93005; J1610

== ENCOUNTER → 2024-11-24 09:04 | Outpatient (REF) | payer OTHER, SELFPAY | LOC: PAVMRI 09:04 | PROVIDERS: ATTENDING PHYSICIAN Orthopaedic Surgery; FAMILY PHYSICIAN Family Medicine | DX: M25.521 Pain in right elbow (principal) | CPT/HCPCS: 73221 ==

== ENCOUNTER → 2024-11-27 06:32 | Outpatient (REF) | payer OTHER, SELFPAY ==
[2024-11-27 10:30] LABS: Hematocrit 44.5 % (39.0-52.0); Hemoglobin 14.7 g/dL (13.0-18.0); Mean Corp Hgb Conc. 33.0 g/dL (33.0-37.0); Mean Corpuscular Volume 94.7 fL (80.0-94.0); Nucleated Red Blood Cells % 0 % (-); Platelet Count 199 10^3/uL (130-400); Red Cell Dist. Width 12.5 % (11.5-14.5)
[2024-11-27 10:45] LABS: Blood Urea Nitrogen 25 mg/dl (9-20); Calcium 9.5 mg/dl (8.4-10.2); Carbon Dioxide 25 mmol/L (22-30); Chloride 109 mmol/L (98-107); Glucose 98 mg/dl (70-99); Potassium 4.2 mmol/L (3.5-5.1); Sodium 141 mmol/L (135-145); eGFR > 60.00
== END ==
LOC: HWLAB 06:32
PROVIDERS: ATTENDING PHYSICIAN Orthopaedic Surgery Hand Surgery; FAMILY PHYSICIAN Family Medicine
DX: Z01.818 Encounter for other preprocedural examination (principal)
CPT/HCPCS: 36415; 80048; 85025; 93005